=== PATIENT | male | born 1990 | race Caucasian/White ===

== ENCOUNTER → 2020-09-04 07:57 | Outpatient (CLI) | payer BC, SELFPAY ==
[2020-09-04] MEDS: COVID-19 VACC #1, MRNA(MOD) 100 MCG/0.5 ML VIAL IM (08:07)
== END ==
PROVIDERS: PCP Family Medicine; Visit Provider Internal Medicine
DX: Z23 Encounter for immunization (principal)
CPT/HCPCS: 0011A; 91301

== ENCOUNTER → 2020-10-02 07:51 | Outpatient (CLI) | payer BC, SELFPAY ==
[2020-10-02] MEDS: COVID-19 VACC #2, MRNA(MOD) 100 MCG/0.5 ML VIAL IM (07:59)
== END ==
PROVIDERS: PCP Family Medicine; Visit Provider Internal Medicine
DX: Z23 Encounter for immunization (principal)
CPT/HCPCS: 0012A; 91301